=== PATIENT | female | born 1935 | race Caucasian/White ===

== ENCOUNTER 2016-04-05 15:15 | Emergency (ER) | payer OTHER ==
[~2016-04-05] VITALS: Ht 167.6 cm; Wt 62.0 kg
[~2016-04-05 15:15] MED LIST: CEPH500C3 PO; KCL20 PO; LORTA5 PO; LOTE10TA PO; SYNT88TA PO
[2016-04-05 15:19] VITALS: BP 148/105; PULSE 115; RESP 17; TEMP 98; O2SAT 97
[2016-04-05] MEDS ORDERED: BENA20TA PO (15:31)
[2016-04-05] MEDS ORDERED: POTA-163 PO (15:31)
[2016-04-05] MEDS ORDERED: SYNT88TA PO (15:31)
--- NOTE | 2016-04-05 15:53 | PD ---
HPI Chief Complaint: Fall Time Seen by Provider: 15:50 Travel History International Travel<30 days: No Contact w/Intl Traveler<30days: No Traveled to known affect area: No History of Present Illness HPI Patient is a 80-year-old female presenting with complaint of left shoulder pain. At 9:30 AM this morning she slipped and fell out of the shower onto the ground. Landed on the shoulder laterally. She is in pain and swelling since. Ice and Aleve has helped only minimally. She denies hitting her head or lose consciousness and denies pain in the head, neck, back, and chest. She denies weakness or paresthesia. She has not been able to use the left shoulder since. She denies any pain in the elbow or wrist on the left. She takes anticoagulants. Denies dizziness, syncope/presyncope, chest pain, shortness of breath, tachycardia/palpitations. PFSH Past Medical History Arthritis: Yes Asthma: No Autoimmune Disease: No Heart Rhythm Problems: Yes Cancer: No Cardiovascular Problems: No High Cholesterol: Yes Chemotherapy: No Chest Pain: Yes Congestive Heart Failure: No COPD: No Diabetes: No Diminished Hearing: No Diverticulitis: Yes Gastrointestinal Disorders: Yes (CONSTIPATION) GERD: Yes Genitourinary: Yes Headaches: Yes Hiatal Hernia: No Heparin Induced Thrombocytopen: No Hypertension: Yes Immune Disorder: No Implanted Vascular Access Dvce: No Kidney Stones: No Musculoskeletal: Yes Neurologic: No Psychiatric: No Reproductive: Yes (Hysterectomy ) Respiratory: Yes Migraines: Yes Radiation Therapy: No Renal Failure: No Seizures: No Sickle Cell Disease: No Sleep Apnea: No Thyroid Disease: Yes Ulcer: No Tetanus Vaccination: < 5 Years ?: Not Menopausal: Yes Past Surgical History Abdominal Surgery: Yes (bowel resection) AICD: No Appendectomy: Yes Arteriovenous Shunt: No Cardiac Surgery: No Ear Surgery: No Eye Surgery: No Genitourinary Surgery: No Gynecologic Surgery: Yes Hysterectomy: Yes Insulin Pump: No Joint Replacement: No Neurologic Surgery: No Oral Surgery: No Pacemaker: No Thoracic Surgery: No Tonsillectomy: Yes Other Surgery: Yes (Parital Thyroid ) Social History Alcohol Use: No Tobacco Use: No Substance Use: No Allergies-Medications (Allergen,Severity, Reaction): Coded Allergies: No Known Allergies (Verified , 04/05/16) Reported Meds & Prescriptions Reported Meds & Active Scripts Active Lortab (Hydrocodone-Acetaminophen) 7.5-325 Mg Tab 1 Tab PO Q6H PRN Reported Synthroid (Levothyroxine Sodium) 88 Mcg Tab 88 Mcg PO DAILY Potassium Chloride ER (Potassium Chloride) 20 Meq Tab 20 Meq PO DAILY Benazepril (Benazepril HCl) 20 Mg Tab 20 Mg PO DAILY Review of Systems Except as stated in HPI: all other systems reviewed are Neg Physical Exam Narrative GENERAL: Well-developed and well-nourished adult female in no acute distress. SKIN: Warm and dry. Good turgor without tenting. HEAD: Normocephalic and atraumatic. EYES: PERRL bilaterally, 5mm. EOMI bilaterally. No injection or icterus present. No proptosis. Lids without edema or erythema. ENT: Buccal mucosa pink and moist. Oropharynx free of erythema, tonsillar hypertrophy, masses, swelling, asymmetry and exudates. Uvula midline and airway patent. NECK: Supple, no midline tenderness, crepitus or step-offs. Trachea midline, no JVD. No cervical or facial lymphadenopathy. CARDIOVASCULAR: Regular rate and rhythm without murmurs, rubs, clicks or gallops. Radial pulses 2+ bilaterally. Capillary refill less than 2 seconds distal tip of all fingers of left hand. RESPIRATORY: Clear to auscultation bilaterally with symmetrical rise and fall, no distress or use of accessory muscles. MUSCULOSKELETAL: Left shoulder has significant edema without ecchymosis or warmth. Diffuse tender to palpation. Some crepitus with attempting to move the humeral head. No obvious squaring off. No pain on palpation of the mid to distal humerus, left elbow, left wrist. No pain with palpation of bilateral clavicles, posterior ribs, lumbar or sacral spine. Patient does have some pain in the left anterior ribs with palpation, no crepitus or step-offs. Patient freely moving all four extremities spontaneously. Extremities without clubbing, cyanosis, or edema. No obvious deformities. NEUROLOGIC: CN II-XII grossly intact. Awake and alert. Sensation intact and strength 5/5 over radial, median, and ulnar nerve distributions bilaterally. Normal speech. PSYCHIATRIC: Appropriate mood and affect; insight and judgment normal. Data Data Last Documented VS Vital Signs Date Time Temp Pulse Resp B/P Pulse Ox O2 Delivery O2 Flow Rate FiO2 04/05/16 15:27 16 97 Room Air 04/05/16 15:19 98.0 115 148/105 Orders Iv Access Insert/Monitor (04/05/16 15:48) Morphine Inj (Morphine Inj) (04/05/16 16:00) Shoulder, Limited(2vws) (04/05/16 15:48) Ice/Cold Pack (04/05/16 15:48) Chest, Pa & Lat (04/05/16 ) Splint Or Brace Apply/Monitor (04/05/16 16:50) MDM Medical Decision Making Medical Screen Exam Complete: Yes Emergency Medical Condition: Yes Differential Diagnosis Humeral fracture versus shoulder dislocation versus rib fracture versus costochondritis Narrative Course Patient 80-year-old female with left shoulder pain after mechanical fall earlier this morning. She slipped and fell out of the shower. She denies any syncope and did not hit her head. She states she is on anticoagulants but medication reconciliation shows that she is not on any anticoagulants. She thinks she may been on them in the past. She is neurovascularly intact does have some edema to the left shoulder. X-ray shows a mildly impacted proximal humerus fracture. Patient also some tenderness of the left anterior rib cage her chest x-ray was unremarkable for acute process. She was given morphine for pain and is resting comfortably. I spoke with Dr. Nina, orthopedist, who recommended sling and swath and pain management.See discharge paperwork for further instructions. The plan was discussed with the patient who acknowledged their understanding and agreement. Reinforced the follow-up with primary care is critically important. Patient instructed on emergent conditions that should prompt return to ED. Diagnosis Primary Impression: Proximal humerus fracture Qualified Code: S42.202A - Closed fracture of proximal end of left humerus, unspecified fracture morphology, initial encounter Referrals: Son Nina MD Patient Instructions: General Instructions, Narcotic given in the ED, Proximal Humerus Fracture (ED) Additional Instructions: Take medications as prescribed Your medications may cause drowsiness. Do not take with alcohol or sedatives. Do not operate a motor vehicle or heavy machinery while on medication. Apply ice every 1 to 2 hours as needed for pain Keep sling on at all times. Do NOT remove until cleared. Do not get splint wet Avoid maneuvers that aggravate pain Elevate when at rest Follow-up with Dr. Nina this week, call his office tomorrow morning for appointment Return to the ED for any acute worsening of symptoms Med/Other Pt SpecificInfo: Prescription(s) given Scripts Hydrocodone-Acetaminophen (Lortab)7.5-325 Mg Tab1 Tab PO Q6H PRN (PAIN) #15 TAB Ref 0 Prov:Martínez Page MD 04/05/16 Disposition: 01 DISCHARGE HOME Condition: Stable Toni Norris III Apr 05, 2016 15:53
[2016-04-05] MEDS ORDERED: MORPHINE SULFATE 4 MG/ML INJ IV PUSH ONE (16:00)
--- NOTE | 2016-04-05 16:19 | RADHPO ---
EXAM DATE/TIME: 04/05/2016 16:05 [facility] COMPARISON: No previous studies available for comparison. INDICATIONS : Left shoulder pain after falling MEDICAL HISTORY : Hypertension. SURGICAL HISTORY : None. ENCOUNTER: Initial ACUITY: 1 day PAIN SCORE: 7/10 LOCATION: Left shoulder FINDINGS: There is a minimally impacted fracture of the proximal humerus. The glenoid and acromion are intact. . CONCLUSION: Mildly impacted fracture of the proximal humerus. Kenneth Cornell MD FACR on April 05, 2016 at 16:11 Board Certified Radiologist. This report was verified electronically.
--- NOTE | 2016-04-05 16:21 | RADHPO ---
EXAM DATE/TIME: 04/05/2016 15:52 [facility] COMPARISON: No previous studies available for comparison. INDICATIONS : Chest pain after falling MEDICAL HISTORY : Hypertension. SURGICAL HISTORY : None. ENCOUNTER: Initial ACUITY: 1 day PAIN SCORE: 7/10 LOCATION: Left chest FINDINGS: Granulomas are seen about the right hilum. The left lung is clear. The heart and pulmonary vascular ity are normal. The bones are osteoporotic. CONCLUSION: 1. Negative chest for acute disease. 2. Mild hyperinflation. Kenneth Cornell MD FACR on April 05, 2016 at 16:10 Board Certified Radiologist. This report was verified electronically.
[2016-04-05] MEDS ORDERED: HYDR-3534 PO (16:51)
== END 2016-04-05 17:13 | disposition home or self-care (01) ==
LOC: PHEFT 15:15
DX: S42.202A Unspecified fracture of upper end of left humerus, initial encounter for closed fracture (principal); I10 Essential (primary) hypertension; E07.9 Disorder of thyroid, unspecified; E78.00 Pure hypercholesterolemia, unspecified; Z87.39 Personal history of other diseases of the musculoskeletal system and connective tissue; Z86.79 Personal history of other diseases of the circulatory system; Z87.19 Personal history of other diseases of the digestive system; Z87.448 Personal history of other diseases of urinary system; Z87.09 Personal history of other diseases of the respiratory system; Z86.69 Personal history of other diseases of the nervous system and sense organs; W18.2XXA Fall in (into) shower or empty bathtub, initial encounter
CPT/HCPCS: 29240; 71020; 73030; 96374; 99284; J2270

== ENCOUNTER 2018-02-16 12:22 | Observation (INO) ==
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
[2018-02-16] MEDS ORDERED: HYDROmorphone PF Inj 0.5 MG/0.5 ML Syringe IV.PUSH ONE ×2 (12:59→15:56)
[2018-02-16 13:08] LABS: Baso % (Auto) 0.4 % (0.0-2.0); Eos # (Auto) 0.1 th/mm3 (0.0-0.4); Eos % (Auto) 1.1 % (0.0-4.0); Hematocrit 38.2 % (35.0-46.0); Hemoglobin 12.9 gm/dL (11.6-15.3); Lymph # (Auto) 1.9 th/mm3 (1.0-4.8); Mean Corpuscular HGB Conc 33.8 % (32.0-36.0); Mean Corpuscular Hemoglobin 32.6 pg (27.0-34.0); Mean Corpuscular Volume 96.3 fL (80.0-100.0); Mean Platelet Volume 8.2 fL (7.0-11.0); Mono # (Auto) 0.6 th/mm3 (0.0-0.9); Mono % (Auto) 8.9 % (0.0-8.0); Neut # (Auto) 4.6 th/mm3 (1.8-7.7); Neut % (Auto) 63.6 % (16.0-70.0); Platelet Count 179 th/mm3 (150-450); Red Blood Count 3.97 mil/mm3 (4.00-5.30); Red Cell Distribution Width 13.9 % (11.6-17.2); White Blood Count 7.3 th/mm3 (4.0-11.0)
[2018-02-16 13:18] LABS: Activated Partial Thrombo Time 24.8 sec (23.4-31.7); Prothrombin Time 10.5 sec (9.8-11.6)
[2018-02-16 13:26] LABS: Calcium 9.1 mg/dL (8.5-10.1); Carbon Dioxide 24.9 meq/L (21.0-32.0); Potassium 4.5 meq/L (3.5-5.1)
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
[2018-02-16] MEDS ORDERED: Etomidate Inj 20 MG/10 ML Ampul IV.PUSH ONE (15:01)
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
[2018-02-16] MEDS ORDERED: ceFAZolin 2 GM Premix Inj 2 GM/50 ML PIGGYBACK IV.SIG ONE (15:43)
--- NOTE | 2018-02-16 16:22 | XR ---
EXAM DATE: 02/16/2018 4:19 PM EST AGE/SEX: 82 years / Female INDICATIONS: Post reduction right wrist. CLINICAL DATA: This is the patient's subsequent encounter. Patient reports that signs and symptoms h ave been present for 1 day and indicates a pain score of Nonresponsive. MEDICAL/SURGICAL HISTORY: Hypertension. None. COMPARISON: [facility] [place], FOREARM RIGHT 2V, 02/16/2018. . FINDINGS: Status post reduction with casting of the right forearm. There is good alignment of the fracture frag ments on this postreduction study. There is overlying cast material in place. No joint dislocation at the radial carpal joint. CONCLUSION: Satisfactory postreduction and casting of the right forearm and wrist. Electronically signed by: Isaac Barker MD Board Certified Radiologist 02/16/2018 4:21 PM EST
[2018-02-16] MEDS ORDERED: Lidocaine 1%/Epinephrine 1:100,000 Inj 50 ML Vial INFILTRATN ONE (16:38)
[2018-02-16] MEDS ORDERED: Morphine Inj 4 MG/ML Vial IV.PUSH PRN (17:37)
[2018-02-16] MEDS ORDERED: Naloxone Inj 0.4 MG/ML Vial IV.PUSH PRN (17:37)
[2018-02-16] MEDS ORDERED: Acetaminophen 325 MG Tablet PO PRN (17:37)
[2018-02-16] MEDS ORDERED: Bisacodyl 10 MG Supp RECTAL PRN (17:37)
[2018-02-16] MEDS ORDERED: Lisinopril 5 MG Tablet PO ONE (18:08)
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
--- NOTE | 2018-02-16 19:42 | P.PNADD ---
Addendum to Inpatient Note Reason for Addendum: Additional Documentation (I was contacted by Dr. Flores of orthopedics. He recommends patient be discharged with 7-day course of Keflex and follow-up with him as an outpatient. Due to hypertension and tachycardia will observe patient overnight, obtain PT recommendations in the morning and hopefully discharge home with home health tomorrow morning.)
[2018-02-16] MEDS: Senna/Docusate Sodium 8.6/50 MG Tablet PO SCH (20:08)
[2018-02-16] MEDS: traZODone 100 MG Tablet PO SCH (20:08)
[2018-02-16] MEDS ORDERED: Potassium Chloride 20 MEQ Pwd Pkt PO SCH (21:00)
[2018-02-17] MEDS: ceFAZolin 1 GM Premix Inj 1 GM/50 ML PIGGYBACK IV.SIG SCH ×4 (00:07→23:26)
[2018-02-17] MEDS: Levothyroxine 75 MCG Tablet PO SCH (06:13)
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
[2018-02-17] MEDS ORDERED: Morphine Sulfate Inj 8 MG/ML Vial IV.PUSH PRN (09:41)
--- NOTE | 2018-02-17 09:46 | P.OP ---
- Preoperative Diagnosis (1) Open fracture of right distal radius Date of procedure: 02/17/18 Procedure: Irrigation and debridement of open right distal radius fracture, open reduction internal fixation intra-articular right distal radius fracture Anesthesia: GETA Surgeon: Jacob Dhillon MD Technical Specialist Cytogenetics: ARTUR Giles PA-C The surgical procedure was assisted by my physician nurses medical assistants phlebotomists. My P.A. presence was necessary throughout this case for the manipulation and positioning of the surgical extremity. My P.A. was assisting me throughout the duration of this procedure. The skill set of a physician nurses medical assistants phlebotomists was medically necessary to complete this procedure. During the surgical case the assembler surgical garment was working at the back table and the physician nurses medical assistants phlebotomists was directly assisting me. Operation and Findings: Implants used: AAP Plan of activity: Nonweightbearing Details of procedure: Patient was seen and evaluated preoperatively and found to have a displaced distal radius fracture. Informed consent was obtained after detailed discussion of risk and benefits including bleeding, infection, injury to arteries, nerves, and blood vessels, weakness and numbness of hand, and tendon rupture. Informed consent was obtained. Patient received IV antibiotics prior to incision. Timeout procedure was performed. Operative extremity was prepped with alcohol followed by Hibiclens and draped usual sterile fashion. A standard volar approach to the distal radius was utilized. A 3 inch incision was made over the FCR tendon. Tendon sheath was opened. Pronator quadratus was elevated up. The fracture site was now visualized. Attention was now turned towards irrigation and debridement of the fracture. Overall the fracture appeared to be very clean. Fracture site was cleaned with curettes. Excisional debridement was performed. Wound was thoroughly irrigated with 3 L of sterile saline. Next attention was turned towards reduction and internal fixation of the fracture. The fracture did have intra-articular extension. Traction was applied. The articular surface was reduced. Fracture fragments were manipulated to achieve excellent reduction. K wires were used to hold provisional fixation. Fluoroscopy confirmed appropriate alignment of fracture. A variable angle distal radius plate was selected. Plate was provisionally fixed to bone with K wires. 2.5 cortical screws were used to compress plate to bone. Fluoroscopy confirmed appropriate alignment of fracture with well-placed hardware. Multiple 2.5 locking screws were now placed distally. Screws were predrilled and measured for appropriate length. 2 additional screws were placed into the shaft. K wires were removed. Final fluoroscopy revealed excellent of fracture with well-placed hardware. The wound was thoroughly irrigated with sterile saline. Subcutaneous tissue was closed with 3-0 Vicryl and skin was closed with 3-0 nylon. Sterile dressings were applied with Xeroform, 4 x 4, soft roll, and a well padded volar splint. Patient was awakened and transferred to recovery room in stable condition
[2018-02-17] MEDS ORDERED: *morphine SULFATE 10 MG/ML PERIprocedure ONLY ONE (10:15)
[2018-02-17] MEDS: Senna/Docusate Sodium 8.6/50 MG Tablet PO SCH ×2 (10:15→20:42)
[2018-02-17] MEDS: Lisinopril 5 MG Tablet PO SCH (10:15)
[2018-02-17] MEDS ORDERED: fentaNYL Citrate Inj 100 MCG/2 ML Ampul ONE (10:22)
--- NOTE | 2018-02-17 10:22 | XR ---
EXAM DATE: 02/17/2018 10:08 AM EST AGE/SEX: 82 years / Female INDICATIONS: Open rigid internal fixation of a distal radial fracture.. CLINICAL DATA: This is the patient's initial encounter. Patient reports that signs and symptoms have been present for 1 day and indicates a pain score of Nonresponsive. MEDICAL/SURGICAL HISTORY: Non-responsive. Non-responsive. COMPARISON: [facility] [place] [facility] RIGHT AP&LAT 2V, 02/16/2018. . FINDINGS: AP and lateral views of the wrist were obtained and demonstrate interval placement of a screw plate f ixation device along the distal radial fracture. The fracture fragments are in near-anatomic alignmen t. The ulnar styloid fracture is faintly visualized. The carpus remains intact in appearance. CONCLUSION: Status post open rigid internal fixation. Electronically signed by: Booker Parry MD Board Certified Radiologist 02/17/2018 10:20 AM T
[2018-02-17] MEDS ORDERED: *morphine SULFATE 4 MG/ML PERIprocedure ONLY ONE (10:34)
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
--- NOTE | 2018-02-17 16:17 | ECG ---
Date Performed: 02/16/2018 Time Performed: 12:56:08 PTAGE: 82 years EKG: SINUS TACHYCARDIA NONSPECIFIC ST & T-WAVE ABNORMALITY ABNORMAL RHYTHM ECG NO PREVIOUS TRACING DOCTOR: Clyde Crump Interpretating Date/Time 02/17/2018 16:15:48
[2018-02-17] MEDS: traZODone 100 MG Tablet PO SCH (20:42)
[2018-02-18] MEDS: Levothyroxine 75 MCG Tablet PO SCH (05:49)
--- NOTE | 2018-02-18 06:52 | P.PNOP ---
Subjective Interval history: POD 1 s/p ORIF right wrist doing well. states pain but controlled with meds. no overnight events Physical Exam Vital signs: Vital Signs 02/17/18 07:21 02/17/18 07:30 02/17/18 10:00 Temperature 97.8 F Pulse Rate 83 Respiratory Rate 16 Blood Pressure 132/67 135/63 Pulse Oximetry 92 L 96 02/17/18 10:01 02/17/18 10:15 02/17/18 10:20 Temperature 97.7 F Pulse Rate 84 86 76 Respiratory Rate 17 22 14 Blood Pressure 163/70 H Pulse Oximetry 99 100 02/17/18 10:30 02/17/18 10:35 02/17/18 10:45 Temperature 98.2 F Pulse Rate 72 76 Respiratory Rate 12 11 L Blood Pressure 140/63 112/56 L Pulse Oximetry 100 98 94 L 02/17/18 11:00 02/17/18 12:43 02/17/18 15:06 Temperature 98.3 F 98.7 F Pulse Rate 77 80 84 Respiratory Rate 14 18 18 Blood Pressure 135/63 111/64 134/61 Pulse Oximetry 96 91 L 94 L 02/17/18 20:47 02/17/18 23:29 02/18/18 04:00 Temperature 101.8 F H 99.8 F H 99.6 F Pulse Rate 105 H 112 H 106 H Respiratory Rate 19 18 17 Blood Pressure 160/72 H 153/74 H 132/68 Pulse Oximetry 92 L 92 L 93 L Intake & Output 02/17/18 02/17/18 02/18/18 06:59 18:59 06:59 Intake Total 50 / 50 640 / 640 50 / 50 Output Total 40 / 40 Balance 50 / 50 600 / 600 50 / 50 Weight 62.1 kg Intake: IV 50 / 50 100 / 100 50 / 50 Ancef 1 GM Premix Inj 1 gm In 50 / 50 100 / 100 50 / 50 50 ml @ 100 mls/hr IV.SIG Q[facility]H [facility] Rx#:[id number] Oral 240 / 240 Anesthesia Amount 300 / 300 Output: Estimated Blood Loss 40 / 40 Other: # Voids 3 Date of Last Bowel Movement 02/16/18 02/16/18 02/16/18 Weight On Admission 62.1 kg Narrative: RUE: +long arm splint. +swelling of fingers. full sensation to median/ulnar nerve. full extension of fingers. Results - Labs CBC & Chem 7: 02/16/18 12:36 02/16/18 12:36 - Imaging Impressions Wrist X-Ray 02/17/18 00:00 CONCLUSION: Status post open rigid internal fixation. Assessment and Plan - Assessment and Plan 1) Right Distal Radius Fx s/p ORIF - POD 1 -NWB -maintain splint at all time -will work with therapy today on getting out of bed -plan for home tomorrow if doing well -f/u jamarcus Cassidy or JULIAN next 02/23 for dressing change [employer] Prescription Drug Monitoring Database has been queried and verified prior to prescribing the controlled subsection. Patient is having significant pain caused by [] which will last more than 3 days. Trial of alternative treatment options other than prescribed opioids has not helped. I believe that it is medically necessary to treat the patients pain because it is affecting patients ability to [].
[2018-02-18 07:12] LABS: Hematocrit 33.3 % (35.0-46.0); Hemoglobin 11.4 gm/dL (11.6-15.3); Mean Corpuscular HGB Conc 34.2 % (32.0-36.0); Mean Corpuscular Hemoglobin 32.5 pg (27.0-34.0); Mean Corpuscular Volume 94.9 fL (80.0-100.0); Mean Platelet Volume 8.5 fL (7.0-11.0); Platelet Count 164 th/mm3 (150-450); Red Blood Count 3.51 mil/mm3 (4.00-5.30); Red Cell Distribution Width 13.6 % (11.6-17.2); White Blood Count 7.6 th/mm3 (4.0-11.0)
[2018-02-18 07:40] LABS: Calcium 8.2 mg/dL (8.5-10.1); Magnesium 2.5 mg/dL (1.5-2.5); Potassium 3.9 meq/L (3.5-5.1)
[2018-02-18] MEDS: ceFAZolin 1 GM Premix Inj 1 GM/50 ML PIGGYBACK IV.SIG SCH ×2 (08:00→16:00)
[2018-02-18] MEDS: Lisinopril 5 MG Tablet PO SCH (09:13)
[2018-02-18] MEDS: Senna/Docusate Sodium 8.6/50 MG Tablet PO SCH ×2 (09:13→20:47)
--- NOTE | 2018-02-18 10:33 | P.DCO ---
Home Health Nursing Order: Medical education, Signs/symptoms of disease process, Medication education-adverse effect, Wound care and dressing changes and Nursing assessment with vital signs Case Management Consult Case Management Consult-Home Health: Yes I have seen patient Lesli Corado on 02/18/18. My clinical findings support the need for the requested home health care services because: Limited mobility due to disease progression, Deconditioned with increased weakness, Medication compliance is questionable, Limited ability to care for self, Impaired cognition/judgement and High risk of falls I certify that my clinical findings support that this patient is homebound because: Post-op weakness, Impaired cognitive ability/safety, Unsteady gait/balance, Unsafe to leave home unassisted and Unable to use public transportation
--- NOTE | 2018-02-18 13:55 | P.DCO ---
Physical Therapy Order: Evaluate and treat, Improve ambulation and Strength and gait training Home Health Nursing Order: Medical education, Signs/symptoms of disease process, Medication education-adverse effect, Wound care and dressing changes and Nursing assessment with vital signs Case Management Consult Case Management Consult-Home Health: Yes I have seen patient Lesli Corado on 02/18/18. My clinical findings support the need for the requested home health care services because: Limited mobility due to disease progression, Deconditioned with increased weakness, Medication compliance is questionable, Limited ability to care for self, Impaired cognition/judgement and High risk of falls I certify that my clinical findings support that this patient is homebound because: Post-op weakness, Impaired cognitive ability/safety, Unsteady gait/balance, Unsafe to leave home unassisted and Unable to use public transportation
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
[2018-02-18] MEDS: traZODone 100 MG Tablet PO SCH (20:47)
[2018-02-19] MEDS: Levothyroxine 75 MCG Tablet PO SCH (05:38)
--- NOTE | 2018-02-19 06:49 | P.PNOP ---
Subjective Interval history: Pain controlled. Doing well no new complaints Physical Exam Vital signs: Vital Signs 02/18/18 07:23 02/18/18 09:25 02/18/18 12:44 Temperature 98.3 F 98.1 F Pulse Rate 88 85 Respiratory Rate 16 16 Blood Pressure 147/69 H 135/65 Pulse Oximetry 92 L 95 94 L 02/18/18 16:04 02/18/18 19:16 02/18/18 22:59 Temperature 98.6 F 98.3 F 98.0 F Pulse Rate 88 92 H 98 H Respiratory Rate 16 18 18 Blood Pressure 153/62 H 159/72 H 156/67 H Pulse Oximetry 95 96 95 02/19/18 03:13 Temperature 98.4 F Pulse Rate 89 Respiratory Rate 17 Blood Pressure 163/71 H Pulse Oximetry 96 Intake & Output 02/18/18 02/18/18 02/19/18 06:59 18:59 06:59 Intake Total 350 / 350 1300 / 1300 480 / 480 Balance 350 / 350 1300 / 1300 480 / 480 Weight 68.3 kg 68.3 kg Intake: IV 50 / 50 100 / 100 Ancef 1 GM Premix Inj 1 gm In 50 / 50 100 / 100 50 ml @ 100 mls/hr IV.SIG Q8H [facility] Rx#:[id number] Oral 300 / 300 1200 / 1200 480 / 480 Other: # Voids 2 5 4 Date of Last Bowel Movement 02/16/18 02/18/18 02/16/18 # Bowel Movements 1 0 Narrative: Right upper extremity: Clean dry dressings intact. Intact sensation all fingers. Active extension and flexion of all fingers. Good capillary refills and distal pulses Results - Labs CBC & Chem 7: 02/18/18 06:16 02/18/18 06:16 Laboratory Results - last 24 hr 02/18/18 02/18/18 06:16 06:16 WBC 7.6 RBC 3.51 L Hgb 11.4 L Hct 33.3 L MCV 94.9 MCH 32.5 MCHC 34.2 RDW 13.6 Plt Count 164 MPV 8.5 Sodium 138 Potassium 3.9 Chloride 103 Carbon Dioxide 30.0 Anion Gap 5 BUN 32 H Creatinine 1.31 H Estimated GFR 39 L Random Glucose 123 H Calcium 8.2 L D Magnesium 2.5 Assessment and Plan - Assessment and Plan 1) Right Distal Radius Fx s/p ORIF - POD 2 -NWB -maintain splint at all time -will work with therapy today on getting out of bed -plan for home today if doing well -f/u with Ange or JULIAN 02/23 for dressing change [employer] Prescription Drug Monitoring Database has been queried and verified prior to prescribing the controlled subsection. Patient is having significant pain caused by [] which will last more than 3 days. Trial of alternative treatment options other than prescribed opioids has not helped. I believe that it is medically necessary to treat the patients pain because it is affecting patients ability to [].
[2018-02-19 08:47] VITALS: BP 140/67; PULSE 84; RESP 18; TEMP 98
[2018-02-19 09:34] VITALS: O2SAT 95
[2018-02-19] MEDS: Senna/Docusate Sodium 8.6/50 MG Tablet PO SCH (09:38)
[2018-02-19] MEDS: Lisinopril 5 MG Tablet PO SCH (09:38)
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
== END 2018-02-19 11:01 | disposition home or self-care (01) ==
LOC: NEDA 12:22 → NEPC 12:22 → NEPGCP 18:25 → N07 02-17 08:45 → N06 02-17 09:48
PROVIDERS: ADMIT Hospitalist; ATTEND Hospitalist
DX: M25.561 Pain in right knee; S80.211A Abrasion, right knee, initial encounter; R51 Headache; Y92.481 Parking lot as the place of occurrence of the external cause; M25.531 Pain in right wrist; S52.501B Unspecified fracture of the lower end of right radius, initial encounter for open fracture type I or II; I10 Essential (primary) hypertension; Z79.899 Other long term (current) drug therapy; W18.30XA Fall on same level, unspecified, initial encounter; V03.10XA Pedestrian on foot injured in collision with car, pick-up truck or van in traffic accident, initial encounter; Z79.890 Hormone replacement therapy; S00.83XA Contusion of other part of head, initial encounter; Z87.891 Personal history of nicotine dependence; E03.9 Hypothyroidism, unspecified; M54.9 Dorsalgia, unspecified; S50.11XA Contusion of right forearm, initial encounter; E78.00 Pure hypercholesterolemia, unspecified